=== PATIENT | male | born 1980 | race Caucasian/White ===

== ENCOUNTER 2018-08-09 15:08 | Emergency (ER) | payer OTHER ==
--- NOTE | 2018-08-09 15:48 | ED Physician Documentation ---
General Adult - HISTORIAN Historian: patient - HPI Chief Complaint: Lower Extremity Problem Additional Information: 38yo white female who states that he has 1 year history of lower back pain, had MRI scan done. Was told that he has a budging disc with deterioration. Has a TENS unit but left it in [place]. Has been taking [place], baclofen, gabapentin and NSAID. Patient states that has run out of medication. Patient is disabled. Patient states that he has not been placed on medicare. Has not talked with division of family services yet. Has exacerbated back problem several weeks ago by putting brake lines on a car. Sitting tends to make symptoms worse. No numbness or weakness noted. Onset: other (years ago) Timing: still present, worse since - ROS CONST: no problems MS/SKIN/LYMPH: none - PAST HX Past History: other (chronic low back apin) Surgeries/Procedures: none Immunizations: referred to PCP Allergies/Adverse Reactions: Allergies Allergy/AdvReac Type Severity Reaction Status Date / Time cyclobenzaprine AdvReac Hives Verified 08/09/18 15:46 [facility] Home Medications: Ambulatory Orders Medication Instructions Recorded Tramadol HCl [Ultram] 50 mg PO QID PRN #20 tablet 08/09/18 - SOCIAL HX Smoking History: greater than 1 pack/day (down from 2 ppd) Alcohol Use: none Drug Use: none - FAMILY HX Family History: No - REVIEWED ASSESSMENTS Nursing Assessment Reviewed: Yes Vitals Reviewed: Yes General Adult Physical Exam - PHYSICAL EXAM GENERAL APPEARANCE: moderate distress NECK: normal inspection RESPIRATORY: no resp distress, chest non-tender, breath sounds normal. No: wheezes, rales, rhonchi CVS: reg rate & rhythm, heart sounds normal, equal pulses, no murmur ABDOMEN: soft, no distension, non-tender BACK: no CVA tenderness, other (tenderness over the lower lumbaar area bilaterally, R>L. No bony abnormalities could be appreciated. There is limited range of motion secondary to pain in all planes.) SKIN: warm/dry EXTREMITIES: non-tender, edema NEURO: CN's nml as tested, motor nml, sensation nml, mood/affect nml, cognition normal Discharge Clincal Impression: Chronic low back pain Prescriptions: Tramadol HCl [Ultram] 50 mg PO QID PRN #20 tablet PRN Reason: Pain Referrals: Primary Doctor,No [Primary Care Provider] - 2 Days Additional Instructions: Get your TENs unit sent to you PATRICE. Do exercises as instructed. Take Aleve 2 tablet with food twice a day. Supplement with Tramadol as needed. Contact your [place] pharmacy to see if they will send you your script/refills until you can get seen by someone. Establish a local provider PATRICE. Condition: Stable Disposition: 01 HOME, SELF-CARE Decision to Admit: NO Date of Decison to Admit: 08/09/18 Decision Time: 16:01
[2018-08-09] MEDS: KETOROLAC TROMETHAMINE 60 MG/2 ML VIAL IM ONE (16:15)
[2018-08-09 20:45] VITALS: BP 112/88
== END 2018-08-09 16:15 | disposition home or self-care (01) ==
LOC: ED 15:08
DX: M54.5 Low back pain (principal)
CPT/HCPCS: 96372; 99284; J1885